=== PATIENT | female | born 1995 | race Caucasian/White ===

== ENCOUNTER 2018-09-18 11:53 | Emergency (ER) | payer SELFPAY ==
[~2018-09-18] VITALS: Ht 162.6 cm; Wt 56.7 kg
[2018-09-18 12:41] LABS: BILIRUBIN,URINE SMALL (NEG); CLARITY,URINE CLOUDY; COLOR,URINE AMBER; NITRITE,URINE NEGATIVE (NEG); PH,URINE 5.5; PROTEIN,URINE NEGATIVE (NEG-TRACE)
[2018-09-18 12:46] VITALS: BP 111/55
[2018-09-18 13:00] LABS: SQUAMOUS EPITHELIAL CELL,UR MANY /LPF
[2018-09-18 13:01] LABS: BACTERIA,URINE MODERATE /HPF (0-FEW); WBC,URINE 20-40 /HPF (0-4)
[2018-09-18] MEDS ORDERED: SULF1TAB24 PO (13:25)
[2018-09-18] MEDS ORDERED: ONDA4TAB12 PO (13:25)
--- NOTE | 2018-09-18 13:25 | PHYS DOC ---
Past Medical History Past Medical History: Seizure Additional Past Medical Histor: NONMALIGNANT BRAIN TUMOR Past Surgical History: Other Additional Past Surgical Histo: BRAIN TUMOR REMOVED Additional Information: 1/2 PK/DAY Alcohol Use: None Drug Use: None Adult General Chief Complaint Chief Complaint: NAUSEA/VOMITING/DIARRHA HPI HPI Patient is a 23 year old female presenting to the ED today complaining of nausea and vomiting that began early this morning. Denies any fevers or cough, no pain. Patient states significant other had similar symptoms a couple days ago. Review of Systems Review of Systems Constitutional: Denies fever or chills [] Eyes: Denies change in visual acuity, redness, or eye pain [] HENT: Denies nasal congestion or sore throat [] Respiratory: Denies cough or shortness of breath [] Cardiovascular: No additional information not addressed in HPI [] GI: Reports nausea and vomiting. Denies abdominal pain, bloody stools or diarrhea [] : Denies dysuria or hematuria [] Musculoskeletal: Denies back pain or joint pain [] Integument: Denies rash or skin lesions [] Neurologic: Denies headache, focal weakness or sensory changes [] All other systems were reviewed and found to be within normal limits, except as documented in this note. Allergies Allergies Allergies Coded Allergies Type Severity Reaction Last Updated Verified No Known Drug Allergies 09/18/18 No Physical Exam Physical Exam Constitutional: Well developed, well nourished, no acute distress, non-toxic appearance. [] HENT: Normocephalic, atraumatic, bilateral external ears normal, oropharynx moist, no oral exudates, nose normal. [] Eyes: PERRLA, EOMI, conjunctiva normal, no discharge. [] Neck: Normal range of motion, no tenderness, supple, no stridor. [] Cardiovascular:Heart rate regular rhythm, no murmur [] Lungs & Thorax: Bilateral breath sounds clear to auscultation [] Abdomen: Bowel sounds normal, soft, no tenderness, no masses, no pulsatile masses. [] Skin: Warm, dry, no erythema, no rash. [] Back: No tenderness, no CVA tenderness. [] Extremities: No tenderness, no cyanosis, no clubbing, ROM intact, no edema. [] Neurologic: Alert and oriented X 3, normal motor function, normal sensory function, no focal deficits noted. [] Psychologic: Affect normal, judgement normal, mood normal. [] Current Patient Data Vital Signs Vital Signs Date Time Temp Pulse Resp B/P (MAP) Pulse Ox O2 Delivery O2 Flow Rate FiO2 09/18/18 12:46 98.6 94 18 111/55 (73) 97 Room Air 98.6 Lab Values Laboratory Tests Test 09/18/18 12:30 09/18/18 12:33 Urine Collection Type Unknown Urine Color Sindy Urine Clarity Cloudy Urine pH 5.5 Urine Specific [place] >=1.030 Urine Protein Negative mg/dL (NEG-TRACE) Urine Glucose (UA) Negative mg/dL (NEG) Urine Ketones (Stick) Trace mg/dL (NEG) Urine Blood Moderate (NEG) Urine Nitrite Negative (NEG) Urine Bilirubin Small (NEG) Urine Urobilinogen Dipstick 1.0 mg/dL (0.2 mg/dL) Urine Leukocyte Esterase Moderate (NEG) Urine RBC 11-20 /HPF (0-2) Urine WBC 20-40 /HPF (0-4) Urine Squamous Epithelial Cells Many /LPF Urine Bacteria Moderate /HPF (0-FEW) Urine Mucus Marked /LPF POC Urine HCG, Qualitative Hcg negative (Negative) EKG EKG [] Radiology/Procedures Radiology/Procedures [] Course & Med Decision Making Course & Med Decision Making Pertinent Labs and Imaging studies reviewed. (See chart for details) This is a 23-year-old female patient presenting to the ED today with nausea and vomiting symptoms began this morning, significant other has similar symptoms, negative urine hCG. Positive for UTI. Discharged on Bactrim and Zofran. Follow- up with PCP in 1-2 weeks. 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 Instructed to push fluids and maintain good hand hygiene. Dragon Disclaimer Dragon Disclaimer This electronic medical record was generated, in whole or in part, using a voice recognition dictation system. Departure Departure Impression: Primary Impression: Urinary tract infection Additional Impression: Nausea and vomiting Disposition: HOME, SELF-CARE Condition: STABLE Referrals: UNKNOWN PCP NAME (PCP) follow up in 1 week Patient Instructions: Nausea and Vomiting, Urinary Tract Infection Additional Instructions: You were evaluated in the emergency room for nausea and vomiting, this is likely a viral illness which will run its own course. Your urine shows quite a bit of infection. We'll put you on antibiotics, ensure you complete them. Take Zofran as needed for nausea vomiting. Push fluids, rest, maintain good hand hygiene. Follow-up with your own doctor in 1-2 weeks. Scripts Sulfamethoxazole/Trimethoprim (BACTRIM DS TABLET) 1 Each Tablet 1 TAB PO BID, #6 TAB Prov: CT NAVARRETE APRN 09/18/18 Ondansetron (ONDANSETRON ODT) 4 Mg Tab.rapdis 1 TAB PO PRN Q6-8HRS, #16 TAB Prov: CT NAVARRETE APRN 09/18/18 Problem Qualifiers Primary Impression: Urinary tract infection Urinary tract infection type: site unspecified Hematuria presence: without hematuria Qualified Codes: N39.0 - Urinary tract infection, site not specified Additional Impression: Nausea and vomiting Vomiting type: unspecified Vomiting Intractability: unspecified Qualified Codes: R11.2 - Nausea with vomiting, unspecified CT NAVARRETE APRN Sep 18, 2018 13:25
== END 2018-09-18 13:47 | disposition home or self-care (01) ==
LOC: ER 11:53
DX: N39.0 Urinary tract infection, site not specified (principal); R11.2 Nausea with vomiting, unspecified; F17.200 Nicotine dependence, unspecified, uncomplicated
CPT/HCPCS: 81001; 81025; 87086; 99283